=== PATIENT | female | born 1955 | race American Indian/Alaskan Native ===

== ENCOUNTER 2018-01-08 19:58 | Emergency (ER) | payer MEDICARE, MEDICAID ==
[2018-01-08] MEDS ORDERED: Ondansetron 4 MG/2 ML SDV IVPUSH ONE (21:29)
[2018-01-08] MEDS ORDERED: Linezolid 600 MG in Premix Bag 1 BAG IV SCH (21:30)
[2018-01-08] MEDS ORDERED: Lactated Ringers 1,000 ML IV SCH (21:30)
--- NOTE | 2018-01-08 21:33 | EDM.PDOC ---
ED HPI GENERAL MEDICAL PROBLEM - General Chief Complaint: Diabetic Complaint Stated Complaint: NAUSEA/SOB Time Seen by Provider: 01/08/18 20:58 Source of Information: Reports: Patient, RN Notes Reviewed History Limitations: Reports: Other (Somnolent) - History of Present Illness INITIAL COMMENTS - FREE TEXT/NARRATIVE: 62-year-old female presents to the emergency department today with complaint of nausea, shortness of breath and near syncopal event she has a long complicated medical history including poorly controlled diabetes mellitus type 2 with amputation on the left side and an ongoing chronic wound on the right side of which she has been following with wound care recommendation with 2 different providers of amputation. She is very somnolent but is arousable will follow commands is limited historian difficult to obtain review of systems denies any fevers denies pain Pain Score (Numeric/FACES): 0 - Related Data Allergies Allergy/AdvReac Type Severity Reaction Status Date / Time No Known Allergies Allergy Verified 01/08/18 20:19 Home Meds: Home Meds Amoxicillin/Potassium Clav [Augmentin 875-125 Tablet] 1 tab PO DAILY 01/08/18 [ History] Ascorbic Acid 500 mg PO DAILY 01/08/18 [History] Aspirin [Daniela Chewable] 81 mg PO DAILY 01/08/18 [History] Clopidogrel [Plavix] 75 mg PO DAILY 01/08/18 [History] Insulin Aspart [Novolog Flexpen] 100 units SUBCUT ASDIRECTED 01/08/18 [History] Insulin Detemir [Levemir Flextouch] 40 units SUBCUT DAILY 01/08/18 [History] Lisinopril [Prinivil] 20 mg PO DAILY 01/08/18 [History] Multivitamin with Minerals [Multiple Vitamin] 1 tab PO DAILY 01/08/18 [History] Ondansetron [Zofran ODT] 4 mg PO Q6H PRN 01/08/18 [History] Zinc Sulfate [Zincate] 220 mg PO DAILY 01/08/18 [History] atorvaSTATin [Lipitor] 40 mg PO BEDTIME 01/08/18 [History] Past Medical History HEENT History: Reports: Impaired Vision Cardiovascular History: Reports: Hypertension Gastrointestinal History: Reports: Chronic Constipation 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 small toe on right foot amputated Social & Family History - Tobacco Use Smoking Status *Q: Never Smoker - Caffeine Use Caffeine Use: Reports: Coffee - Recreational Drug Use Recreational Drug Use: Yes Drug Use in Last 12 Months: Yes Recreational Drug Type: Reports: Marijuana/Hashish ED ROS GENERAL - Review of Systems Review Of Systems: See Below Constitutional: Reports: Weakness, Fatigue. Denies: Fever, Chills HEENT: Reports: No Symptoms Respiratory: Reports: Shortness of Breath. Denies: Cough, Sputum Cardiovascular: Reports: Syncope GI/Abdominal: Reports: Nausea : Reports: No Symptoms Musculoskeletal: Reports: Foot Pain Skin: Reports: Wound Neurological: Reports: No Symptoms ED EXAM GENERAL NO PERIP PULSE - Physical Exam Exam: See Below Text/Narrative:: General: Female, ill-appearing somnolent arousable and will follow commands HEENT: head is atraumatic normocephalic, eyes pupils equal round reactive to light, sclera clear no conjunctivitis appreciated. Ears tympanic membranes clear and ocampo landmarks and light reflex are present bilaterally canals are clear. Nose no septal deviation, nares are clear, no blood present. Mouth mucosa is dry and pink no erythema or exudate noted in soft palate, tongue is midline uvula is midline, dentition is poor. Neck: Supple no thyromegaly no tracheal deviation. Nodes: Cervical nodes subclavicular nodes nontender no palpable lymphadenopathy noted. Lungs: clear to auscultation bilaterally with symmetrical respirations, no adventitious noise appreciated. CV: Regular rate and rhythm S1 and S2 appreciated no murmurs rubs or gallops noted. Abdomen: Soft, nontender, no palpable masses or organomegaly appreciated, no distention no guarding bowel sounds are present, Neuro: Cranial nerves II through XII grossly intact Skin: Warm and dry, intact Extremities: Examination of the right foot she does have a open wound that encompasses the majority of the foot she is missing digit #5 however digits 3 and 4 also appear to be auto necrosing the wound is odiferous there is a moderate amount of exudate present foot in general is discolored pedal pulses decreased +1, difficult to assess Course - Vital Signs Last Recorded V/S: Last Vital Signs Temp 96.4 F 01/09/18 00:00 Pulse 84 01/09/18 00:00 Resp 11 L 01/09/18 00:00 BP 132/79 01/09/18 00:00 Pulse Ox 99 01/09/18 00:00 - Orders/Labs/Meds Orders: Active Orders 24 hr Category Date Time Status EKG Documentation Completion [RC] ASDIRECTED Care 01/08/18 21:27 Active Vital Signs [RC] Q1H Care 01/08/18 21:24 Active Chest 1V Frontal [CR] Urgent Exams 01/08/18 21:26 Taken CULTURE BLOOD [BC] Urgent Lab 01/08/18 21:35 Received CULTURE BLOOD [BC] Urgent Lab 01/08/18 21:47 Received UA W/MICROSCOPIC [URIN] Urgent Lab 01/08/18 23:37 Ordered Lactated Ringers [Ringers, Lactated] 1,000 ml Med 01/08/18 21:30 Active IV ASDIRECTED Sodium Chloride 0.9% [Normal Saline] 1,000 ml Med 01/08/18 21:45 Active IV ASDIRECTED Blood Culture x2 Reflex Set [OM.PC] Urgent Oth 01/08/18 21:24 Ordered EKG 12 Lead [EK] Stat Ther 01/08/18 21:26 Ordered Medication Orders Lactated Ringer's (Ringers, Lactated) 1,000 mls @ 999 mls/hr IV ASDIRECTED STACEY Sodium Chloride (Normal Saline) 1,000 mls @ 500 mls/hr IV ASDIRECTED STACEY Last Admin: 01/08/18 21:42 Dose: 500 mls/hr Labs: Laboratory Tests 01/08/18 01/08/18 01/08/18 Range/Units 21:26 21:35 21:35 WBC 13.5 H (4.5-11.0) K/uL RBC 3.14 L (3.30-5.50) M/uL Hgb 9.2 L (12.0-15.0) g/dL Hct 29.3 L (36.0-48.0) % MCV 93 (80-98) fL MCH 29 (27-31) pg MCHC 31 L (32-36) % Plt Count 352 (150-400) K/uL Neut % (Auto) 86 H (36-66) % Lymph % (Auto) 9 L (24-44) % [place] % (Auto) 4 (2-6) % Eos % (Auto) 1 L (2-4) % Baso % (Auto) 0 (0-1) % Puncture Site Lt brachial ABG pH 7.446 (7.350-7.450) ABG pCO2 32.9 L (35.0-42.0) mmHg ABG pO2 138.0 H (75.0-100.0) mmHg ABG HCO3 22.2 (22.0-26.0) mmol/L ABG Total CO2 20.8 L (21.0-25.0) mmol/L ABG O2 Saturation 99.4 H (95.0-98.0) % ABG O2 Content 12.1 L (15.0-23.0) %vol ABG Base Excess -1.0 mm/L ABG Hemoglobin 8.8 L (12.0-16.0) g/dL ABG Oxyhemoglobin 95.3 % ABG Carboxyhemoglobin 3.2 H (0.0-1.6) % ABG Methemoglobin 0.9 % Raghav Test Passed O2 Delivery Device Room air Sodium 138 L (140-148) mmol/L Potassium 3.8 (3.6-5.2) mmol/L Chloride 106 (100-108) mmol/L Carbon Dioxide 25 (21-32) mmol/L Anion Gap 10.8 (5.0-14.0) mmol/L BUN 26 H (7-18) mg/dL Creatinine 1.1 H (0.6-1.0) mg/dL Est Cr Clr Drug Dosing 52.89 mL/min Estimated GFR (MDRD) 51 L (>60) Glucose 90 (74-106) mg/dL Lactic Acid (0.4-2.0) mmol/L Calcium 8.7 (8.5-10.1) mg/dL Total Bilirubin 0.2 (0.2-1.0) mg/dL AST 12 L (15-37) U/L ALT 16 (12-78) U/L Alkaline Phosphatase 124 H (46-116) U/L Troponin I (0.000-0.056) ng/mL C-Reactive Protein 1.49 H (0.0-0.3) mg/dL Total Protein 7.7 (6.4-8.2) g/dL Albumin 2.7 L (3.4-5.0) g/dL Globulin 5.0 H (2.3-3.5) g/dL Albumin/Globulin Ratio 0.5 L (1.2-2.2) Urine Color Urine Appearance Urine pH (4.5-8.0) Ur Specific [place] (1.008-1.030) Urine Protein (NEGATIVE) mg/dL Urine Glucose (UA) (NEGATIVE) mg/dL Urine Ketones (NEGATIVE) mg/dL Urine Occult Blood (NEGATIVE) Urine Nitrite (NEGATIVE) Urine Bilirubin (NEGATIVE) Urine Urobilinogen (NORMAL) mg/dL Ur Leukocyte Esterase (NEGATIVE) Urine RBC (0-5) Urine WBC (0-5) Ur Epithelial Cells Amorphous Sediment Urine Bacteria Urine Mucus Urine Other 01/08/18 01/08/18 01/08/18 Range/Units 21:35 21:35 23:37 WBC (4.5-11.0) K/uL RBC (3.30-5.50) M/uL Hgb (12.0-15.0) g/dL Hct (36.0-48.0) % MCV (80-98) fL MCH (27-31) pg MCHC (32-36) % Plt Count (150-400) K/uL Neut % (Auto) (36-66) % Lymph % (Auto) (24-44) % [place] % (Auto) (2-6) % Eos % (Auto) (2-4) % Baso % (Auto) (0-1) % Puncture Site ABG pH (7.350-7.450) ABG pCO2 (35.0-42.0) mmHg ABG pO2 (75.0-100.0) mmHg ABG HCO3 (22.0-26.0) mmol/L ABG Total CO2 (21.0-25.0) mmol/L ABG O2 Saturation (95.0-98.0) % ABG O2 Content (15.0-23.0) %vol ABG Base Excess mm/L ABG Hemoglobin (12.0-16.0) g/dL ABG Oxyhemoglobin % ABG Carboxyhemoglobin (0.0-1.6) % ABG Methemoglobin % Raghav Test O2 Delivery Device Sodium (140-148) mmol/L Potassium (3.6-5.2) mmol/L Chloride (100-108) mmol/L Carbon Dioxide (21-32) mmol/L Anion Gap (5.0-14.0) mmol/L BUN (7-18) mg/dL Creatinine (0.6-1.0) mg/dL Est Cr Clr Drug Dosing mL/min Estimated GFR (MDRD) (>60) Glucose (74-106) mg/dL Lactic Acid 1.3 (0.4-2.0) mmol/L Calcium (8.5-10.1) mg/dL Total Bilirubin (0.2-1.0) mg/dL AST (15-37) U/L ALT (12-78) U/L Alkaline Phosphatase (46-116) U/L Troponin I < 0.017 (0.000-0.056) ng/mL C-Reactive Protein (0.0-0.3) mg/dL Total Protein (6.4-8.2) g/dL Albumin (3.4-5.0) g/dL Globulin (2.3-3.5) g/dL Albumin/Globulin Ratio (1.2-2.2) Urine Color Yellow Urine Appearance Cloudy Urine pH 5.0 (4.5-8.0) Ur Specific [place] 1.020 (1.008-1.030) Urine Protein 30 H (NEGATIVE) mg/dL Urine Glucose (UA) 50 H (NEGATIVE) mg/dL Urine Ketones 15 H (NEGATIVE) mg/dL Urine Occult Blood Negative (NEGATIVE) Urine Nitrite Negative (NEGATIVE) Urine Bilirubin Small (NEGATIVE) Urine Urobilinogen 1 (NORMAL) mg/dL Ur Leukocyte Esterase Small (NEGATIVE) Urine RBC 0-5 (0-5) Urine WBC 10-20 H (0-5) Ur Epithelial Cells Not seen Amorphous Sediment Moderate Urine Bacteria Few Urine Mucus Moderate Urine Other Meds: Medications Generic Name Dose Route Start Last Admin Trade Name Freq PRN Reason Stop Dose Admin Lactated Ringer's 1,000 mls @ 999 mls/hr 01/08/18 21:30 Ringers, Lactated IV ASDIRECTED STACEY Sodium Chloride 1,000 mls @ 500 mls/hr 01/08/18 21:45 01/08/18 21:42 Normal Saline IV 500 mls/hr ASDIRECTED STACEY Administration Discontinued Medications Generic Name Dose Route Start Last Admin Trade Name Mar PRN Reason Stop Dose Admin Linezolid 600 mg/ Premix 300 mls @ 300 mls/hr 01/08/18 21:30 01/08/18 21:43 IV Not Given Q12H STACEY Vancomycin HCl 1 gm/ Sodium 250 mls @ 150 mls/hr 01/08/18 22:00 Chloride IV Q12H STACEY Linezolid 600 mg/ Premix 300 mls @ 300 mls/hr 01/08/18 21:38 01/08/18 21:58 IV 01/08/18 22:37 Not Given ONETIME ONE Vancomycin HCl 1 gm/ Sodium 250 mls @ 150 mls/hr 01/08/18 21:37 01/08/18 21: 58 Chloride IV 01/08/18 23:16 Not Given ONETIME ONE Linezolid 600 mg/ Premix 300 mls @ 300 mls/hr 01/08/18 21:38 01/08/18 21:54 IV 01/08/18 22:37 300 mls/hr NOW STA Administration Vancomycin HCl 1 gm/ Sodium 250 mls @ 150 mls/hr 01/08/18 21:38 01/08/18 23: 06 Chloride IV 01/08/18 23:16 150 mls/hr NOW STA Administration Ondansetron HCl 4 mg 01/08/18 21:29 01/08/18 21:38 Zofran IVPUSH 01/08/18 21:30 4 mg ONETIME ONE Administration Vancomycin HCl Confirm 01/08/18 21:45 01/08/18 21:58 Vancomycin Administered 01/08/18 21:46 Not Given Dose 1 gm .ROUTE .STK-MED ONE Departure - Departure Time of Disposition: 00:42 Disposition: Home, Self-Care 01 Condition: Poor Clinical Impression: Diabetic foot ulcer Qualifiers: Diabetic foot ulcer location: midfoot Diabetes mellitus type: type 2 Laterality : right Non-pressure ulcer stage: with muscle involvement without evidence of necrosis Qualified Code(s): E11.621 - Type 2 diabetes mellitus with foot ulcer; L97.415 - Non-pressure chronic ulcer of right heel and midfoot with muscle involvement without evidence of necrosis - Discharge Information Referrals: PCP,None [Primary Care Provider] - Forms: ED Department Discharge Additional Instructions: Continue your regular medications, please report to the [facility] as soon as possible for further evaluation - My Orders Last 24 Hours: My Active Orders 01/08/18 21:24 Vital Signs [RC] Q1H Blood Culture x2 Reflex Set [OM.PC] Urgent 01/08/18 21:26 Chest 1V Frontal [CR] Urgent EKG 12 Lead [EK] Stat 01/08/18 21:27 EKG Documentation Completion [RC] ASDIRECTED 01/08/18 21:30 Lactated Ringers [Ringers, Lactated] 1,000 ml IV ASDIRECTED 01/08/18 21:35 CULTURE BLOOD [BC] Urgent 01/08/18 21:45 Sodium Chloride 0.9% [Normal Saline] 1,000 ml IV ASDIRECTED 01/08/18 21:47 CULTURE BLOOD [BC] Urgent 01/08/18 23:37 UA W/MICROSCOPIC [URIN] Urgent - Assessment/Plan Last 24 Hours: My Active Orders 01/08/18 21:24 Vital Signs [RC] Q1H Blood Culture x2 Reflex Set [OM.PC] Urgent 01/08/18 21:26 Chest 1V Frontal [CR] Urgent EKG 12 Lead [EK] Stat 01/08/18 21:27 EKG Documentation Completion [RC] ASDIRECTED 01/08/18 21:30 Lactated Ringers [Ringers, Lactated] 1,000 ml IV ASDIRECTED 01/08/18 21:35 CULTURE BLOOD [BC] Urgent 01/08/18 21:45 Sodium Chloride 0.9% [Normal Saline] 1,000 ml IV ASDIRECTED 01/08/18 21:47 CULTURE BLOOD [BC] Urgent 01/08/18 23:37 UA W/MICROSCOPIC [URIN] Urgent Plan: Assessment Acuity = acute Site and laterality = chronic wound with auto necrosis complicated patient with diabetes mellitus type 2 poor control Etiology = probable underlying peripheral vascular disease Manifestations = none Location of injury = Home Lab values = WBC elevated at 13.5 consistent leukocytosis, hemoglobin low at 9.2 consistent with normochromic anemia ABG reveals 7.45 pH PCO2 32.9 PO2 138 bicarbonate 22.3 creatinine elevated 1.1 consistent chronic renal failure stage GIII a lactic acid normal 1.3 troponin was negative albumin low at 2.7 consistent hypoalbuminemia urinalysis analysis reveals 1020 WBCs consistent with pyuria chest x-ray I did review films myself I cannot appreciate any acute process, the official read from radiology is pending Plan I did offer hospital admission because my concern for early sepsis and ongoing chronic wound infection probably leading to amputation however she declined I did offer her transfer back to [place] where she is received most of her care but she recently received a second opinion at the [facility] and would like to return there. I did offer transfer to the [facility] but I counseled her that the cost of the ambulance ride for the extra milage would be put on her of which she declined. Therefore she is asked to be discharged home and she will drive to the [facility] tomorrow for further evaluation This note was dictated using [employer] voice recognition software please call with any questions on syntax or grammar.
[2018-01-08] MEDS ORDERED: Linezolid 600 MG in Premix Bag 1 BAG IV STA (21:38)
[2018-01-08] MEDS ORDERED: Linezolid 600 MG in Premix Bag 1 BAG IV ONE (21:38)
[2018-01-08] MEDS ORDERED: Vancomycin 1 GM SDV ONE (21:45)
[2018-01-08] MEDS ORDERED: Sodium Chloride 0.9% 1,000 ML IV SCH (21:45)
--- NOTE | 2018-01-13 10:11 | CR ---
Chest 1V Frontal INDICATION: hypotensive COMPARISON: None FINDINGS: AP portable chest. Heart size normal. Lungs are clear. No pleural effusion.
== END 2018-01-09 01:23 | disposition home or self-care (01) ==
LOC: JP.ED 19:58
DX: E11.621 Type 2 diabetes mellitus with foot ulcer (principal); L97.415 Non-pressure chronic ulcer of right heel and midfoot with muscle involvement without evidence of necrosis; I10 Essential (primary) hypertension; Z79.82 Long term (current) use of aspirin; Z79.4 Long term (current) use of insulin
CPT/HCPCS: 36415; 36600; 71045; 80053; 81001; 82803; 83605; 84484; 85025; 86140; 87040; 93005; 96361; 96365; 96366; 96367; 96375; 99284; J2020; J2405; J3370; J7030; J7050